=== PATIENT | male | born 1950 | race Caucasian/White ===

== ENCOUNTER 2018-11-09 03:56 | Emergency (ER) | payer MEDICARE, SELFPAY ==
[2018-11-09 04:01] VITALS: BP 95/70; PULSE 101; RESP 16; TEMP 36.7; O2SAT 95
--- NOTE | 2018-11-09 04:22 | W.ED.GENAD ---
Discharge Plan Disposition Patient Disposition: HOME Condition: Stable Discharge Details Chief Complaint: Orthopedic Clinical Impression: Leg pain, right Primary Care Provider: Dax Leyva ED Provider: Hang Pratt Home Meds and New Rx's Prescriptions: No Action clonazepam 0.5 MG tablet,disintegrating 0.5 mg PO PRN PRNRF: 0 metformin [Glucophage] 1,000 MG tablet 1,000 mg PO BID@0800,1700 Qty: 28 RF: 0 magnesium oxide 400 MG tablet 400 mg PO DAILY Qty: 30 RF: 0 omeprazole 20 MG capsule,delayed release(DR/EC) 40 mg PO DAILY Qty: 60 RF: 0 alum-mag hydroxide-simeth [Mag-Al Plus] 30 ML suspension 30 ml PO Q2H PRN PRNQty: 120 RF: 0 aspirin [Aspir-81] 81 MG tablet,delayed release (DR/EC) 81 mg PO DAILY Qty: 90 RF: 3 glipizide 5 MG tablet 10 mg PO DAILY RF: 0 Discharge Instructions Instructions: Leg Pain (ED) Additional Instructions: if pain continues next week follow up with your primary care provider return to the emergency department if you have severe worsening of pain or your leg becomes diffusely swollen Stand Alone Forms: Work Release Medical Decision Making 67 yo male states for a few weeks now the patient has had right leg pain intermittently and tonight at work when turning felt a pain from his mid thigh to the right upper leg and went to his knee, denies loc or hitting his head. Has mild pain in the right lateral mid thigh on exam over the muscle, no pain over the bone, no leg swelling, no calf pain and intact pulses and distal sensation. Has full rom of the hip, knee and ankle and is bearing weight and walking so do not feel xrays indiated as unlikely fx. Suspect muscle spasm vs strain. Advised f/u with pcp if not better in a week and return precautions given Differential Diagnosis strain sprain HPI General Mode of arrival: ambulatory. Date/Time Provider Initiated Documentation: 11/09/18 04:11. Limitations to Documentation: no limitations. Information obtained by: patient. History of Present Illness 67 year old M presents to the emergency department with the chief complaint of right leg pain, described as mild, Quality is described as aching, and is localized to the right and lower extremity. Patient reports no radiation. Patient started experiencing this week(s) (2) and it has been intermittent. No relieving factors improve symptom(s), No exacerbating factors reported . Patient notes no other symptoms.. Patient did receive the following treatments prior to arrival, none Related Data Home Medications Medication Instructions Recorded Confirmed clonazepam 0.5 mg PO PRN PRN 09/19/12 11/09/18 metformin [Glucophage] 1,000 mg PO BID@0800,1700 #28 tab 11/02/15 11/09/18 aspirin [Aspir-81] 81 mg PO DAILY #90 tablet. 04/18/17 11/09/18 alum-mag hydroxide-simeth [Mag-Al 30 ml PO Q2H PRN PRN #120 ml 05/05/17 11/09/18 Plus] magnesium oxide 400 mg PO DAILY #30 tab 05/05/17 11/09/18 omeprazole 40 mg PO DAILY #60 capcr 05/05/17 11/09/18 glipizide 10 mg PO DAILY 06/23/17 11/09/18 Previous Rx's Medication Instructions Recorded metformin [Glucophage] 1,000 mg PO BID@0800,1700 #28 tab 11/02/15 aspirin [Aspir-81] 81 mg PO DAILY #90 tablet. 04/18/17 alum-mag hydroxide-simeth [Mag-Al 30 ml PO Q2H PRN PRN #120 ml 05/05/17 Plus] magnesium oxide 400 mg PO DAILY #30 tab 05/05/17 omeprazole 40 mg PO DAILY #60 capcr 05/05/17 Allergies Allergy/AdvReac Type Severity Reaction Status Date / Time ibuprofen [From Motrin] AdvReac Mild gi upset Unverified 11/09/18 04:07 General Stated Complaint: Orthopedic UBALDO: 4 Review of Systems Review of Systems All systems reviewed & are unremarkable except as noted in HPI and below Constitutional Denies chills, Denies fever(s) and Denies weakness Cardiovascular Denies chest pain and Denies dyspnea Respiratory Denies cough and Denies dyspnea Gastrointestinal Denies abdominal pain, Denies nausea and Denies vomiting Integumentary/Breasts Denies rash Neurologic Denies weakness PFSH Social History Smoking/Tobacco Use Status: Former Tobacco Use Alcohol Intake: never Drug use: Never Do you feel safe at home: Yes Do you feel safe in your relationship?: Yes Exam Const General: no acute distress Orientation: alert HENVT Head: normal to inspection Ears: external ears normal General nose exam: external nose normal Mouth: moist mucous membranes Eyes General: appearance normal, both eyes and all related structures Neck Neck: normal visual inspection Resp Effort & Inspection: normal respiratory effort and able to speak in complete sentences Cardio Rate: regular rate Skin General skin exam: no rashes or lesions noted Neuro General: alert and oriented x3 Extrem General: normal to inspection Psych Mental Status: mental status grossly normal Course Vital Signs Temperature 36.7 C 11/09/18 04:01 Pulse 101 H 11/09/18 04:01 Respiratory Rate 16 11/09/18 04:01 Blood Pressure 95/70 L 11/09/18 04:01 Pulse Oximetry 95 11/09/18 04:01 Temperature 36.7 C 11/09/18 04:01 Temperature Source Temporal Artery Scan 11/09/18 04:01 Pulse 101 H 11/09/18 04:01 Respiratory Rate 16 11/09/18 04:01 Respiratory Effort 11/09/18 04:01 Blood Pressure 95/70 L 11/09/18 04:01 Pulse Oximetry 95 11/09/18 04:01 Oxygen Delivery Method Room Air 11/09/18 04:01 Oxygen Flow Rate 0 11/09/18 04:01 Pain Level 8 11/09/18 04:06
--- NOTE | 2018-11-09 04:28 | ED.GENADUL_ITS ---
Discharge Plan Disposition Patient Disposition: HOME Condition: Stable Discharge Details Chief Complaint: Orthopedic Clinical Impression: Leg pain, right Primary Care Provider: Dax Leyva ED Provider: Hang Pratt Home Meds and New Rx's Prescriptions: No Action clonazepam 0.5 MG tablet,disintegrating 0.5 mg PO PRN PRNRF: 0 metformin [Glucophage] 1,000 MG tablet 1,000 mg PO BID@0800,1700 Qty: 28 RF: 0 magnesium oxide 400 MG tablet 400 mg PO DAILY Qty: 30 RF: 0 omeprazole 20 MG capsule,delayed release(DR/EC) 40 mg PO DAILY Qty: 60 RF: 0 alum-mag hydroxide-simeth [Mag-Al Plus] 30 ML suspension 30 ml PO Q2H PRN PRNQty: 120 RF: 0 aspirin [Aspir-81] 81 MG tablet,delayed release (DR/EC) 81 mg PO DAILY Qty: 90 RF: 3 glipizide 5 MG tablet 10 mg PO DAILY RF: 0 Discharge Instructions Instructions: Leg Pain (ED) Additional Instructions: if pain continues next week follow up with your primary care provider return to the emergency department if you have severe worsening of pain or your leg becomes diffusely swollen Stand Alone Forms: Work Release Medical Decision Making 67 yo male states for a few weeks now the patient has had right leg pain intermittently and tonight at work when turning felt a pain from his mid thigh to the right upper leg and went to his knee, denies loc or hitting his head. Has mild pain in the right lateral mid thigh on exam over the muscle, no pain over the bone, no leg swelling, no calf pain and intact pulses and distal sensation. Has full rom of the hip, knee and ankle and is bearing weight and walking so do not feel xrays indiated as unlikely fx. Suspect muscle spasm vs strain. Advised f/u with pcp if not better in a week and return precautions given Differential Diagnosis strain sprain HPI General Mode of arrival: ambulatory . Date/Time Provider Initiated Documentation: 11/09/18 04:11 . Limitations to Documentation: no limitations . Information obtained by: patient . History of Present Illness 67 year old M presents to the emergency department with the chief complaint of right leg pain, described as mild, Quality is described as aching, and is localized to the right and lower extremity. Patient reports no radiation. Patient started experiencing this week(s) (2) and it has been intermittent. No relieving factors improve symptom(s), No exacerbating factors reported . Patient notes no other symptoms.. Patient did receive the following treatments prior to arrival, none Related Data Home Medications Medication Instructions Recorded Confirmed clonazepam 0.5 mg PO PRN PRN 09/19/12 11/09/18 metformin [Glucophage] 1,000 mg PO BID@0800,1700 #28 tab 11/02/15 11/09/18 aspirin [Aspir-81] 81 mg PO DAILY #90 tablet. 04/18/17 11/09/18 alum-mag hydroxide-simeth [Mag-Al 30 ml PO Q2H PRN PRN #120 ml 05/05/17 11/09/18 Plus] magnesium oxide 400 mg PO DAILY #30 tab 05/05/17 11/09/18 omeprazole 40 mg PO DAILY #60 capcr 05/05/17 11/09/18 glipizide 10 mg PO DAILY 06/23/17 11/09/18 Previous Rx's Medication Instructions Recorded metformin [Glucophage] 1,000 mg PO BID@0800,1700 #28 tab 11/02/15 aspirin [Aspir-81] 81 mg PO DAILY #90 tablet. 04/18/17 alum-mag hydroxide-simeth [Mag-Al 30 ml PO Q2H PRN PRN #120 ml 05/05/17 Plus] magnesium oxide 400 mg PO DAILY #30 tab 05/05/17 omeprazole 40 mg PO DAILY #60 capcr 05/05/17 Allergies Allergy/AdvReac Type Severity Reaction Status Date / Time ibuprofen [From Motrin] AdvReac Mild gi upset Unverified 11/09/18 04:07 General Stated Complaint: Orthopedic UBALDO: 4 Review of Systems Review of Systems All systems reviewed & are unremarkable except as noted in HPI and below Constitutional Denies chills, Denies fever(s) and Denies weakness Cardiovascular Denies chest pain and Denies dyspnea Respiratory Denies cough and Denies dyspnea Gastrointestinal Denies abdominal pain, Denies nausea and Denies vomiting Integumentary/Breasts Denies rash Neurologic Denies weakness PFSH Social History Smoking/Tobacco Use Status: Former Tobacco Use Alcohol Intake: never Drug use: Never Do you feel safe at home: Yes Do you feel safe in your relationship?: Yes Exam Const General: no acute distress Orientation: alert HENAL Head: normal to inspection Ears: external ears normal General nose exam: external nose normal Mouth: moist mucous membranes Eyes General: appearance normal, both eyes and all related structures Neck Neck: normal visual inspection Resp Effort & Inspection: normal respiratory effort and able to speak in complete sentences Cardio Rate: regular rate Skin General skin exam: no rashes or lesions noted Neuro General: alert and oriented x3 Extrem General: normal to inspection Psych Mental Status: mental status grossly normal Course Vital Signs Temperature 36.7 C 11/09/18 04:01 Pulse 101 H 11/09/18 04:01 Respiratory Rate 16 11/09/18 04:01 Blood Pressure 95/70 L 11/09/18 04:01 Pulse Oximetry 95 11/09/18 04:01 Temperature 36.7 C 11/09/18 04:01 Temperature Source Temporal Artery Scan 11/09/18 04:01 Pulse 101 H 11/09/18 04:01 Respiratory Rate 16 11/09/18 04:01 Respiratory Effort 11/09/18 04:01 Blood Pressure 95/70 L 11/09/18 04:01 Pulse Oximetry 95 11/09/18 04:01 Oxygen Delivery Method Room Air 11/09/18 04:01 Oxygen Flow Rate 0 11/09/18 04:01 Pain Level 8 11/09/18 04:06
== END 2018-11-09 04:31 | disposition home or self-care (01) ==
LOC: ER 04:34
PROVIDERS: Emergency Provider Emergency Medicine; PCP Family Medicine
DX: M79.651 Pain in right thigh (principal)
CPT/HCPCS: 99281

== ENCOUNTER 2019-03-27 13:15 | Outpatient (REF) | payer MEDICARE, SELFPAY ==
[2019-03-27 18:45] LABS: HCT 40.8 % (40.0-50.0); HGB 13.6 g/dL (13.5-17.5); Mean Corp. HGB Concentration 33.3 g/dL (32.0-36.0); Mean Corpuscular Hemoglobin 29.7 pg (27.0-33.0); Mean Corpuscular Volume 89.1 fL (80-95); Mean Platelet Volume 10.4 fL (8.0-11.0); Platelet Count 214 x1000/uL (130-400); RBC 4.58 m/cumm (4.50-6.00); RBC Distribution Width 13.7 % (11.8-14.1); White Blood Cell Count 8.14 k/cumm (4.4-10.8)
[2019-03-27 18:54] LABS: ALT 22 U/L (16-63); AST 16 U/L (15-37); Albumin 3.7 g/dL (3.4-5.0); Alkaline Phosphatase 107 U/L (46-116); Anion Gap 8.9 mmol/L (3-11); BUN 14 mg/dL (7-18); Bilirubin, Total 0.6 mg/dL (0.2-1.0); CO2 27.1 mmol/L (21.0-32.0); CREATININE 0.97 mg/dL (0.70-1.30); Calcium 8.6 mg/dL (8.5-10.1); Chloride 103 mmol/L (98-107); Glucose 184 mg/dL (70-100); Potassium 4.1 mmol/L (3.5-5.1); Sodium 139 mmol/L (136-145); Total Protein 7.8 g/dL (6.4-8.2)
== END 2019-03-27 13:35 ==
LOC: NCHCN 13:15
PROVIDERS: PCP Family Medicine; Visit Provider Family Medicine
DX: E11.9 Type 2 diabetes mellitus without complications (principal); K76.0 Fatty (change of) liver, not elsewhere classified
CPT/HCPCS: 80053; 85027

== ENCOUNTER → 2019-04-06 13:41 | Outpatient (BNVA) | payer MEDICARE, SELFPAY | PROVIDERS: PCP Family Medicine; Referring Provider Family Medicine; Visit Provider Surgery | DX: K62.5 Hemorrhage of anus and rectum (principal); K21.9 Gastro-esophageal reflux disease without esophagitis; Z80.0 Family history of malignant neoplasm of digestive organs; J44.9 Chronic obstructive pulmonary disease, unspecified; E11.9 Type 2 diabetes mellitus without complications; Z79.84 Long term (current) use of oral hypoglycemic drugs; I10 Essential (primary) hypertension; Z87.891 Personal history of nicotine dependence | CPT/HCPCS: 99213 ==

== ENCOUNTER 2019-04-12 00:58 | Outpatient (CLI) | payer MEDICARE, SELFPAY ==
--- NOTE | 2019-04-12 14:50 | DI.CTLCSR_ITS ---
EXAM: CT CHEST LUNG CANCER SCREEN CLINICAL HISTORY: [facility] Z[facility], F17.210. TECHNIQUE: CT examination chest was performed utilizing low-dose lung cancer screening protocol. Images obtained through the upper abdomen show unremarkable appearance of visualized portions kidneys adrenals liver spleen pancreas. Prior cholecystectomy. No pleural effusion seen. Slight prominence mediastinal lymph nodes probably unchanged from prior examination 05/04/2017. Diffuse multi focal emphysematous changes with multiple lung bullae and areas of early honeycombing particularly in the lung bases. Increased prominence since previous examination of 2017. Increased ground-glass and reticular opacities associated with these areas of abnormality in comparison previous examination. No focal pulmonary nodule seen. No consolidation. COMPARISON: [facility]EUR[facility] from 05/04/2017 FINDINGS: Interval progression of chronic pulmonary findings including emphysema and early honeycombing since previous examination of 2017. No pulmonary nodule seen category 1 S, no nodules identified but other significant disease present. IMPRESSION:
== END 2019-04-12 01:18 ==
PROVIDERS: PCP Family Medicine; Visit Provider Family Medicine
DX: Z12.2 Encounter for screening for malignant neoplasm of respiratory organs (principal); F17.210 Nicotine dependence, cigarettes, uncomplicated; R59.0 Localized enlarged lymph nodes; J98.4 Other disorders of lung
CPT/HCPCS: G0297

== ENCOUNTER 2019-04-24 08:15 | Day surgery (SDC) | payer MEDICARE, SELFPAY ==
[2019-04-24 08:25] VITALS: BP 111/69; PULSE 81; RESP 16; TEMP 36.1; O2SAT 97
--- NOTE | 2019-04-24 08:48 | W.PM.DSUDISC ---
Discharge Plan Disposition Patient Disposition: HOME Condition: Good Discharge Details Reason For Visit: EGD, colonoscopy Attending Provider: Codi Marion Primary Care Provider: Dax Leyva Home Meds and New Rx's Prescriptions: Continued omeprazole 20 mg tablet,delayed release (DR/EC) 20 mg PO DAILY PRNRF: 0 cholecalciferol (vitamin D3) 1,000 unit capsule 1,000 unit PO DAILY RF: 0 albuterol sulfate [Ventolin HFA] 90 mcg/actuation HFA aerosol inhaler 1 inh IH ONCE RF: 0 bupropion HCl 150 mg tablet sustained-release 12 hr 150 mg PO QAM RF: 0 ketoconazole 2 % cream 1 applic TP DAILY RF: 0 metformin [Glucophage] 1,000 MG tablet 1,000 mg PO BID@0800,1700 Qty: 28 RF: 0 alum-mag hydroxide-simeth [Mag-Al Plus] 30 ML suspension 30 ml PO Q2H PRN PRNQty: 120 RF: 0 aspirin [Aspir-81] 81 MG tablet,delayed release (DR/EC) 81 mg PO DAILY Qty: 90 RF: 3 Discontinued polyethylene glycol 3350 17 gram/dose powder 238 g PO ONCE Qty: 238 RF: 0 bisacodyl [Dulcolax (bisacodyl)] 5 mg tablet,delayed release (DR/EC) 5 mg PO ONCE Qty: 4 RF: 0 Discharge Instructions Additional Instructions: Findings: Your upper endoscopy showed a small hiatal hernia. One polyp was removed during the colonoscopy. My office will contact you with results. Internal hemorrhoids were banded. This will result in pressure that can be helped by sitting in a tub of warm water. You may have a small amount of bleeding related to the procedure. Follow up: Due to the location of the polyp, close follow up in 1-2 years will be needed. Please call if you develop: fevers >101.5 Nausea or Vomiting Abdominal pain that is not transient DAY SURGERY UNIT POST COLONOSCOPY INSTRUCTIONS 1. Because there will be medication in your system for the next 24 hours, you may feel a little sleepy. Your coordination will be affected. Therefore: a. Do not drive or operate dangerous equipment for 24 hours. b. Do not drink alcohol beverages for 24 hours (not even beer). c. Plan to go home and rest for the day. 2. Generally there are no restrictions on your activity after a day or so has gone by, but you may feel a bit fatigued for a few days. 3 After you arrive home you may have a light meal and return to a normal diet as you can tolerate it without feeling sick to your stomach. 4. After surgery, you may feel pain or discomfort. This should be only transient, but if it persists please contact your doctor. 5. If there are any questions regarding the findings of your procedure, please feel free to contact your doctor. 6. If you are unable to contact your doctor with a problem, contact the hospital at [phone]. 7. Continue all your regular medications unless directed otherwise. I understand the above instructions and have no questions. Signature of Patient or Responsible Adult Escort Date/Time Name of Responsible Adult Escort Signature of Nurse Date/Time Activity:: Activity as Tolerated Diet:: As Tolerated Discharge Orders Discharge Orders: Discharge Order (Routine); Ordered 04/24/19 Ordered By: Codi Marion DS: Diagnosis Discharge Diagnosis (1) Colon polyp: Status: Acute (2) Internal bleeding hemorrhoids: Status: Acute
[2019-04-24] MEDS: Lactated Ringers 1,000 ML 80 ML IV (08:54)
--- NOTE | 2019-04-24 10:40 | BOWEL_PTH ---
PATIENT: KATHE SAMUELS LOC: [facility] U#:[id number] AGE/SX: 68/M ROOM: RE04/24/[address]: Codi Marion MD : [id number] BED: DIS: 04/24/2019 SPEC #: [id number] RECD: 04/24/19 13:03 STATUS: NIC REQ #: [id number] LIZZETTE: 04/24/19 10:[address]: Codi Marion DEPT: Surgical Specimen RECD BY: Maren Barry ENTERED: 04/24/19 13:03 SP TYPE: Bowel OTHR DR: Dax Leyva Tissues: 1 - BIOPSY BOWEL Procedures: GROSS AND MICRO LEVEL 4 Comments: [id number]
[2019-04-24 10:50] VITALS: BP 118/69; PULSE 85; RESP 18; TEMP 36.1; O2SAT 95
--- NOTE | 2019-04-24 13:03 | ENDO_ITS ---
DATE OF PROCEDURE: April 24, 2019 PREOPERATIVE DIAGNOSIS: 1. Reflux. 2. Family history of colon cancer. 3. Rectal bleeding. POSTOPERATIVE DIAGNOSIS: 1. Small hiatal hernia. 2. Cecal polyp. 3. Diverticulosis. 4. Internal hemorrhoids. PROCEDURE: 1. Esophagogastroduodenoscopy. 2. Colonoscopy with cold forceps and cold snare polypectomy. 3. Internal hemorrhoid banding. SURGEON: Codi Marion M.D. ANESTHESIA: General. INDICATIONS: This is a 68-year-old man who presents for his first colonoscopy. His sister was treat ed for colon cancer. The patient notes fairly frequent rectal bleeding, which is a nuisance. He als o reports a long-term history of reflux that is well-controlled with PPI's. He denies dysphagia. PROCEDURE: He was placed in the left Rankin position. Propofol was titrated to sedation. The scope w as advanced into his esophagus under direct visualization and down into the stomach and duodenum. Th ere was no duodenitis or ulcers noted. The stomach itself appeared normal, including on retroflex vi ew of the fundus and lesser curvature with the exception of a very small hiatal hernia. The GE junct ion included no masses, Romero's, inflammation or significant strictures. The air was suctioned fro m the stomach and the scope withdrawn with no other esophageal lesions found. Digital rectal examination revealed no abnormalities. The scope was advanced to the cecum without di fficulty. The ileocecal valve and appendiceal orifice were clearly identified. There was about a 1 cm flat polyp located between the appendiceal orifice and the ileocecal valve. This was in a very di fficult location to reach because of position behind the valve. This was also complicated by a signi ficant respiratory motion of the abdomen. I was able to remove the majority of it using the cold bio psy forceps in a piecemeal fashion. The remainder was removed as best as possible with the cold snar e. This will have to be reassessed in the fairly near future in case there is some residual polyp. The scope was slowly withdrawn with no abnormalities seen within the ascending, transverse or descend ing colon. He had mild diverticular change in the sigmoid region. The rectum revealed prominent int ernal hemorrhoids seen on retroflexion. The air was suctioned from the colon and the scope withdrawn . Three bands were placed on the internal hemorrhoids above the dentate line with good result. He tolerated the procedure well and was stable to recovery. As mentioned above, he will likely need a follow-up colonoscopy again in 1 to 2 years depending on his polyp pathology. cc: Dax Leyva M.D.
== END 2019-04-24 11:15 | disposition home or self-care (01) ==
PROVIDERS: PCP Family Medicine; Visit Provider Surgery
PROC: (CPT 45385; principal; 2019-04-24 09:30)
DX: K62.5 Hemorrhage of anus and rectum (principal); R19.4 Change in bowel habit; D12.0 Benign neoplasm of cecum; K64.0 First degree hemorrhoids; K57.30 Diverticulosis of large intestine without perforation or abscess without bleeding; Z80.0 Family history of malignant neoplasm of digestive organs; K21.9 Gastro-esophageal reflux disease without esophagitis; K44.9 Diaphragmatic hernia without obstruction or gangrene; E11.9 Type 2 diabetes mellitus without complications; Z79.84 Long term (current) use of oral hypoglycemic drugs; J44.9 Chronic obstructive pulmonary disease, unspecified
CPT/HCPCS: 45385; 43235; 46221; 88305

== ENCOUNTER 2019-07-18 12:56 | Outpatient (CLI) | payer MEDICARE, SELFPAY ==
--- NOTE | 2019-07-18 14:18 | DI.CT_ITS ---
EXAM: CT HEAD WO CLINICAL HISTORY: POSTTRAUMATIC COREA, G44.309, ON ASPIRIN, FALLS, DECREASED BALANCE, ?SUBACUTE BLEED. TECHNIQUE: Imaging Protocol: Axial computed tomography images with coronal and sagittal reformatted images were created and reviewed COMPARISON: HEAD WITHOUT CONTRAST from 01/20/2018 FINDINGS: Ventricles and Extra axial spaces: Normal in size and morphology for the patient's age. Hemorrhage: None. Cerebral parenchyma: Within normal limits for the patient's age. Midline shift: None. Brainstem/Cerebellum: Normal. Calvarium: Normal. Visualized Paranasal sinuses/Mastoids: Clear. IMPRESSION: No acute intracranial process. No intracranial hemorrhage. DATA REPOSITORY: All CT scans at this facility are submitted to the National Radiology Data Registry (NRDR) Dose Index Registry (DIR) with the [employer] ([employer]). RADIATION OPTIMIZATION: All CT scans at this facility use at least one of these dose optimization te chniques: automated exposure control; mA and/or kV adjustment per patient size (includes targeted exa ms where dose is matched to clinical indication); or iterative reconstruction.
== END 2019-07-18 13:16 ==
PROVIDERS: PCP Family Medicine; Visit Provider Family Medicine
DX: G44.309 Post-traumatic headache, unspecified, not intractable (principal); R26.89 Other abnormalities of gait and mobility
CPT/HCPCS: 70450